=== PATIENT | female | born 1985 | race Caucasian/White ===

== ENCOUNTER 2019-01-14 16:17 | Emergency (ER) | payer OTHER ==
[~2019-01-14] VITALS: Ht 165.1 cm; Wt 93.0 kg
[2019-01-14 16:20] VITALS: BP 111/77
[2019-01-14] MEDS ORDERED: METH4TAB3 PO (16:37)
[2019-01-14] MEDS ORDERED: IBUP-1984 PO (16:37)
[2019-01-14] MEDS ORDERED: FLUT16SP2 BOTHNARES (16:37)
== END 2019-01-14 17:05 | disposition home or self-care (01) ==
LOC: ER 16:17
DX: J06.9 Acute upper respiratory infection, unspecified (principal); J32.9 Chronic sinusitis, unspecified; B97.89 Other viral agents as the cause of diseases classified elsewhere; F11.90 Opioid use, unspecified, uncomplicated; Z98.890 Other specified postprocedural states; Z79.899 Other long term (current) drug therapy; Z88.8 Allergy status to other drugs, medicaments and biological substances
CPT/HCPCS: 99283

== ENCOUNTER 2019-09-13 14:12 | Emergency (ER) | payer MEDICAID ==
[~2019-09-13] VITALS: Ht 165.1 cm; Wt 81.0 kg
[~2019-09-13 14:12] MED LIST: FLUT16SP2 BOTHNARES; METH4TAB3 PO
[2019-09-13 14:35] LABS: URINE HCG NEGATIVE (NEG)
[2019-09-13 14:36] LABS: CLARITY,URINE SLIGHTLY CLOUDY (Clear); COLOR,URINE YELLOW (Yellow); GLUCOSE, URINE NEGATIVE (Neg); KETONES,URINE 15 mg/dl (Neg); LEUKOCYTE ESTERASE ,URINE NEGATIVE (Neg); NITRITES, URINE NEGATIVE (Neg); OCCULT BLOOD,URINE MODERATE (Neg); PH,URINE 8.5 (4.8-8.0); PROTEIN,URINE 30 mg/dl (Neg)
[2019-09-13 14:39] LABS: UA COLLECTION TYPE CLN CATCH MIDSTREAM
[2019-09-13 14:41] LABS: BACTERIA,URINE 1+ /HPF (Neg); MUCUS STRANDS MANY /LPF (Neg); SQUAMOUS EPITHELIAL CELL,UR MANY /LPF (FEW); WBC,URINE 0-4 /HPF (0-4)
[2019-09-13 15:12] LABS: BASOPHILS % (AUTO) 0.2 % (0-1); EOSINOPHILS % (AUTO) 0 % (0-6); HEMATOCRIT 42.2 % (35.0-45.0); HEMOGLOBIN 13.8 g/dl (12.0-16.0); LYMPHOCYTES # (AUTO) 0.7 X10'3 (1.1-4.8); LYMPHOCYTES % (AUTO) 4.9 % (21-51); MEAN CORPUSCULAR HEMOGLOBIN 29.7 PG (27.0-31.0); MEAN CORPUSCULAR HGB CONC 32.7 g/dL (33.0-36.5); MEAN CORPUSCULAR VOLUME 90.7 FL (78-98); MEAN PLATELET VOLUME 9.1 FL (7.4-10.4); MONOCYTES # (AUTO) 0.4 X10'3 (0-0.9); MONOCYTES % (AUTO) 2.5 % (2-12); NEUTROPHILS # (AUTO) 13.8 X10'3 (1.8-7.7); NEUTROPHILS % (AUTO) 92.4 % (42-75); PLATELET COUNT 258 X10'3 (140-440); RED BLOOD COUNT 4.65 X10'6 (4.20-5.60); WHITE BLOOD COUNT 14.9 X10'3 (4.5-11.0)
[2019-09-13 15:29] LABS: ALANINE AMINOTRANSFERASE 24 U/L (12-78); ALBUMIN 4.5 G/DL (3.4-5.0); ALBUMIN/GLOBULIN RATIO 1.3 (1.1-1.5); ALKALINE PHOSPHATASE 72 IU/L (46-116); ANION GAP 12 (8-16); ASPARTATE AMINO TRANSFERASE 15 U/L (10-37); BILIRUBIN,TOTAL 0.3 MG/DL (0.1-1.0); BLOOD UREA NITROGEN 13 MG/DL (7-18); BUN/CREATININE RATIO 13.3 (6.6-38.0); CALCIUM 9.3 MG/DL (8.5-10.1); CHLORIDE 105 MMOL/L (99-107); CREATININE 0.98 MG/DL (0.40-0.90); GLUCOSE 178 MG/DL (70-104); LIPASE 61 U/L (73-393); SODIUM 141 MMOL/L (135-145); TOTAL CARBON DIOXIDE 23.6 MMOL/L (24-32); TOTAL PROTEIN 7.9 G/DL (6.4-8.2); eGFR 65 ML/MIN
[2019-09-13] MEDS ORDERED: normal saline 1000ML IV soln IVB ONE (15:35)
[2019-09-13] MEDS ORDERED: morphine 4 MG/ML inj SYRINge IV ONE (15:35)
[2019-09-13] MEDS ORDERED: ondansetron/PF 4mg/2ml inj IV ONE (15:35)
--- NOTE | 2019-09-13 15:40 | NUR ---
PT TO CT.
[2019-09-13] MEDS ORDERED: ONDA4TAB6 PO (16:47)
[2019-09-13 16:48] VITALS: BP 92/55
== END 2019-09-13 17:26 | disposition home or self-care (01) ==
LOC: ER 14:12
DX: R11.0 Nausea (principal); R10.30 Lower abdominal pain, unspecified; F11.90 Opioid use, unspecified, uncomplicated; Z88.8 Allergy status to other drugs, medicaments and biological substances; Z79.899 Other long term (current) drug therapy
CPT/HCPCS: 36415; 74176; 80053; 81001; 81025; 83690; 85025; 96374; 96375; 99284; J2270; J2405; J7030

== ENCOUNTER 2019-09-14 06:52 | Emergency (ER) | payer MEDICAID ==
[~2019-09-14] VITALS: Ht 165.1 cm; Wt 82.1 kg
[~2019-09-14 06:52] MED LIST changes: +ONDA4TAB6 PO
[2019-09-14] MEDS ORDERED: diphenhydrAMINE 25mg capsule PO ONE (07:40)
[2019-09-14] MEDS ORDERED: haloperidol lactate 5mg/ml inj IM ONE (07:40)
[2019-09-14] MEDS ORDERED: ondansetron/PF 4mg/2ml inj IV ONE (07:40)
[2019-09-14] MEDS ORDERED: normal saline 1000ML IV soln IVB ONE (07:40)
[2019-09-14 08:23] LABS: BASOPHILS # (AUTO) 0.1 X10'3 (0-0.2); BASOPHILS % (AUTO) 0.4 % (0-1); EOSINOPHILS # (AUTO) 0.1 X10'3 (0-0.9); EOSINOPHILS % (AUTO) 0.5 % (0-6); HEMATOCRIT 40.8 % (35.0-45.0); HEMOGLOBIN 13.5 g/dl (12.0-16.0); LYMPHOCYTES # (AUTO) 2.1 X10'3 (1.1-4.8); LYMPHOCYTES % (AUTO) 12.6 % (21-51); MEAN CORPUSCULAR HEMOGLOBIN 29.8 PG (27.0-31.0); MEAN CORPUSCULAR HGB CONC 33.2 g/dL (33.0-36.5); MEAN CORPUSCULAR VOLUME 89.7 FL (78-98); MEAN PLATELET VOLUME 9.1 FL (7.4-10.4); MONOCYTES # (AUTO) 1.3 X10'3 (0-0.9); NEUTROPHILS # (AUTO) 12.9 X10'3 (1.8-7.7); NEUTROPHILS % (AUTO) 78.5 % (42-75); PLATELET COUNT 239 X10'3 (140-440); RED BLOOD COUNT 4.55 X10'6 (4.20-5.60); RED CELL DISTRIBUTION WIDTH 14.3 % (11.5-14.5); WHITE BLOOD COUNT 16.4 X10'3 (4.5-11.0)
[2019-09-14] MEDS ORDERED: metoclopramide 5 mg/ml inj IV ONE (08:25)
[2019-09-14] MEDS ORDERED: diphenhydrAMINE 50 mg/ml inj IV ONE (08:25)
[2019-09-14 08:36] LABS: ALANINE AMINOTRANSFERASE 17 U/L (12-78); ALBUMIN/GLOBULIN RATIO 1.3 (1.1-1.5); ALKALINE PHOSPHATASE 64 IU/L (46-116); ANION GAP 16 (8-16); ASPARTATE AMINO TRANSFERASE 16 U/L (10-37); BILIRUBIN,TOTAL 0.3 MG/DL (0.1-1.0); BLOOD UREA NITROGEN 11 MG/DL (7-18); BUN/CREATININE RATIO 13.1 (6.6-38.0); CALCIUM 8.8 MG/DL (8.5-10.1); CHLORIDE 107 MMOL/L (99-107); CREATININE 0.84 MG/DL (0.40-0.90); GLUCOSE 121 MG/DL (70-104); LIPASE 84 U/L (73-393); POTASSIUM 3.2 MMOL/L (3.5-5.1); SODIUM 144 MMOL/L (135-145); TOTAL PROTEIN 7.2 G/DL (6.4-8.2); eGFR 77 ML/MIN
[2019-09-14 09:01] VITALS: BP 116/72
[2019-09-14] MEDS ORDERED: potassium Cl 20 mEq SR tablet PO ONE (09:20)
[2019-09-14] MEDS ORDERED: LORazepam 2 mg/ml vial IV ONE (09:20)
[2019-09-15] MEDS ORDERED: ONDA4TAB6 PO (12:39)
== END 2019-09-14 10:19 | disposition home or self-care (01) ==
LOC: ER 06:53
DX: R11.2 Nausea with vomiting, unspecified (principal); F12.188 Cannabis abuse with other cannabis-induced disorder; F11.90 Opioid use, unspecified, uncomplicated; R10.84 Generalized abdominal pain; Z88.8 Allergy status to other drugs, medicaments and biological substances; Z79.899 Other long term (current) drug therapy
CPT/HCPCS: 36415; 80053; 83690; 85025; 96361; 96372; 96374; 96375; 99284; J1200; J1630; J2060; J2405; J2765; J7030; Q0163

== ENCOUNTER 2019-09-15 10:54 | Emergency (ER) | payer MEDICAID ==
[~2019-09-15] VITALS: Ht 165.1 cm; Wt 84.1 kg
[2019-09-15] MEDS ORDERED: ondansetron/PF 4mg/2ml inj IV ONE (11:10)
[2019-09-15] MEDS ORDERED: normal saline 1000ML IV soln IV ONE (11:10)
[2019-09-15] MEDS ORDERED: haloperidol lactate 5mg/ml inj IM ONE (11:10)
[2019-09-15] MEDS ORDERED: LORazepam 2 mg/ml vial IV ONE (11:10)
[2019-09-15 11:41] LABS: BASOPHILS # (AUTO) 0.1 X10'3 (0-0.2); BASOPHILS % (AUTO) 0.5 % (0-1); EOSINOPHILS % (AUTO) 0.4 % (0-6); HEMATOCRIT 41.7 % (35.0-45.0); HEMOGLOBIN 13.8 g/dl (12.0-16.0); LYMPHOCYTES # (AUTO) 1.6 X10'3 (1.1-4.8); LYMPHOCYTES % (AUTO) 13.5 % (21-51); MEAN CORPUSCULAR HEMOGLOBIN 29.6 PG (27.0-31.0); MEAN CORPUSCULAR HGB CONC 33.1 g/dL (33.0-36.5); MEAN CORPUSCULAR VOLUME 89.3 FL (78-98); MEAN PLATELET VOLUME 9.3 FL (7.4-10.4); MONOCYTES # (AUTO) 0.8 X10'3 (0-0.9); MONOCYTES % (AUTO) 6.6 % (2-12); NEUTROPHILS # (AUTO) 9.6 X10'3 (1.8-7.7); PLATELET COUNT 244 X10'3 (140-440); RED BLOOD COUNT 4.67 X10'6 (4.20-5.60); RED CELL DISTRIBUTION WIDTH 14.2 % (11.5-14.5); WHITE BLOOD COUNT 12.2 X10'3 (4.5-11.0)
[2019-09-15 11:56] LABS: ALANINE AMINOTRANSFERASE 26 U/L (12-78); ALBUMIN 4.3 G/DL (3.4-5.0); ALBUMIN/GLOBULIN RATIO 1.3 (1.1-1.5); ALKALINE PHOSPHATASE 67 IU/L (46-116); ANION GAP 12 (8-16); ASPARTATE AMINO TRANSFERASE 18 U/L (10-37); BILIRUBIN,TOTAL 0.3 MG/DL (0.1-1.0); BLOOD UREA NITROGEN 15 MG/DL (7-18); CALCIUM 9.1 MG/DL (8.5-10.1); CHLORIDE 107 MMOL/L (99-107); CREATININE 0.79 MG/DL (0.40-0.90); GLUCOSE 134 MG/DL (70-104); POTASSIUM 3.5 MMOL/L (3.5-5.1); SODIUM 141 MMOL/L (135-145); TOTAL CARBON DIOXIDE 22.3 MMOL/L (24-32); TOTAL PROTEIN 7.6 G/DL (6.4-8.2); eGFR 83 ML/MIN
[2019-09-15] MEDS ORDERED: ONDA4TAB6 PO (12:39)
[2019-09-15] MEDS ORDERED: acetaminophen 325mg tablet PO ONE (12:45)
[2019-09-15] MEDS ORDERED: metoclopramide 5 mg/ml inj IV ONE (12:45)
[2019-09-15] MEDS ORDERED: diphenhydrAMINE 50 mg/ml inj IV ONE (13:35)
[2019-09-15 14:17] VITALS: BP 138/90
== END 2019-09-15 13:28 | disposition home or self-care (01) ==
LOC: ER 10:54
DX: R11.15 Cyclical vomiting syndrome unrelated to migraine (principal); F12.188 Cannabis abuse with other cannabis-induced disorder; R11.2 Nausea with vomiting, unspecified; R10.84 Generalized abdominal pain; F11.90 Opioid use, unspecified, uncomplicated; Z88.8 Allergy status to other drugs, medicaments and biological substances; Z79.899 Other long term (current) drug therapy
CPT/HCPCS: 36415; 80053; 85025; 96361; 96372; 96374; 96375; 99284; J1200; J1630; J2060; J2405; J2765; J7030

== ENCOUNTER 2019-09-19 01:16 | Emergency (ER) | payer MEDICAID ==
[~2019-09-19] VITALS: Ht 165.1 cm; Wt 81.0 kg
[2019-09-19] MEDS ORDERED: LORazepam 2 mg/ml vial IM ONE (02:50)
[2019-09-19] MEDS ORDERED: haloperidol lactate 5mg/ml inj IM ONE (02:50)
[2019-09-19] MEDS ORDERED: diphenhydrAMINE 50 mg/ml inj IM ONE (02:50)
[2019-09-19 04:19] VITALS: BP 132/94
== END 2019-09-19 04:21 | disposition home or self-care (01) ==
LOC: ER 01:17
DX: R11.15 Cyclical vomiting syndrome unrelated to migraine (principal); R10.9 Unspecified abdominal pain; R11.2 Nausea with vomiting, unspecified; F12.90 Cannabis use, unspecified, uncomplicated; F11.90 Opioid use, unspecified, uncomplicated; Z88.8 Allergy status to other drugs, medicaments and biological substances; Z79.899 Other long term (current) drug therapy
CPT/HCPCS: 96372; 99284; J1200; J1630; J2060

== ENCOUNTER 2019-09-21 08:00 | Emergency (ER) | payer MEDICAID ==
[~2019-09-21] VITALS: Ht 165.1 cm; Wt 79.0 kg
[2019-09-21 08:55] LABS: CLARITY,URINE SLIGHTLY CLOUDY (Clear); COLOR,URINE BROWN (Yellow); GLUCOSE, URINE NEGATIVE (Neg); KETONES,URINE NEGATIVE (Neg); LEUKOCYTE ESTERASE ,URINE TRACE (Neg); NITRITES, URINE NEGATIVE (Neg); OCCULT BLOOD,URINE TRACE-LYSED (Neg); PH,URINE 6.5 (4.8-8.0); PROTEIN,URINE NEGATIVE (Neg)
[2019-09-21 08:58] LABS: URINE HCG NEGATIVE (NEG)
[2019-09-21 08:59] LABS: UA COLLECTION TYPE CLN CATCH MIDSTREAM
[2019-09-21 09:05] LABS: SQUAMOUS EPITHELIAL CELL,UR MANY /LPF (FEW)
[2019-09-21] MEDS ORDERED: metoclopramide 5 mg/ml inj IV ONE (09:05)
[2019-09-21] MEDS ORDERED: LORazepam 2 mg/ml vial IV ONE (09:05)
[2019-09-21] MEDS ORDERED: normal saline 1000ML IV soln IVB ONE ×2 (09:05)
[2019-09-21] MEDS ORDERED: morphine 4 MG/ML inj SYRINge IV ONE (09:05)
[2019-09-21] MEDS ORDERED: pantoprazole 40 MG vial IV ONE (09:05)
[2019-09-21 09:07] LABS: CAL OXALATE CRYSTALS FEW /HPF (NEGATIVE); RBC,URINE 0-2 /HPF (0-2); WBC,URINE 0-4 /HPF (0-4)
[2019-09-21 09:08] LABS: BACTERIA,URINE FEW /HPF (Neg); MUCUS STRANDS MANY /LPF (Neg)
[2019-09-21 09:35] LABS: BASOPHILS # (AUTO) 0.1 X10'3 (0-0.2); BASOPHILS % (AUTO) 0.5 % (0-1); EOSINOPHILS # (AUTO) 0.1 X10'3 (0-0.9); EOSINOPHILS % (AUTO) 0.7 % (0-6); HEMATOCRIT 47.1 % (35.0-45.0); HEMOGLOBIN 15.8 g/dl (12.0-16.0); LYMPHOCYTES # (AUTO) 1.5 X10'3 (1.1-4.8); LYMPHOCYTES % (AUTO) 10.6 % (21-51); MEAN CORPUSCULAR HEMOGLOBIN 29.8 PG (27.0-31.0); MEAN CORPUSCULAR HGB CONC 33.6 g/dL (33.0-36.5); MEAN CORPUSCULAR VOLUME 88.7 FL (78-98); MEAN PLATELET VOLUME 9.3 FL (7.4-10.4); MONOCYTES # (AUTO) 1.2 X10'3 (0-0.9); NEUTROPHILS # (AUTO) 11.7 X10'3 (1.8-7.7); NEUTROPHILS % (AUTO) 80.2 % (42-75); PLATELET COUNT 266 X10'3 (140-440); RED BLOOD COUNT 5.31 X10'6 (4.20-5.60); RED CELL DISTRIBUTION WIDTH 13.8 % (11.5-14.5); WHITE BLOOD COUNT 14.6 X10'3 (4.5-11.0)
[2019-09-21 09:46] LABS: ALANINE AMINOTRANSFERASE 19 U/L (12-78); ALBUMIN 4.3 G/DL (3.4-5.0); ALBUMIN/GLOBULIN RATIO 1.3 (1.1-1.5); ALKALINE PHOSPHATASE 69 IU/L (46-116); ASPARTATE AMINO TRANSFERASE 13 U/L (10-37); BILIRUBIN,TOTAL 0.5 MG/DL (0.1-1.0); BLOOD UREA NITROGEN 11 MG/DL (7-18); BUN/CREATININE RATIO 11.6 (6.6-38.0); CALCIUM 9.2 MG/DL (8.5-10.1); CHLORIDE 105 MMOL/L (99-107); CREATININE 0.95 MG/DL (0.40-0.90); GLUCOSE 113 MG/DL (70-104); LIPASE 140 U/L (73-393); POTASSIUM 3.3 MMOL/L (3.5-5.1); TOTAL PROTEIN 7.7 G/DL (6.4-8.2); eGFR 67 ML/MIN
[2019-09-21 09:49] LABS: ANION GAP 10 (8-16); SODIUM 141 MMOL/L (135-145)
[2019-09-21] MEDS ORDERED: ondansetron/PF 4mg/2ml inj IV ONE (10:30)
[2019-09-21] MEDS ORDERED: HYDR-3965 PO (12:10)
[2019-09-21] MEDS ORDERED: ONDA8TAB13 PO (12:10)
[2019-09-21] MEDS ORDERED: PANT-47 PO (12:10)
[2019-09-21 12:40] VITALS: BP 135/88
== END 2019-09-21 12:40 | disposition home or self-care (01) ==
LOC: ER 08:01
DX: R10.9 Unspecified abdominal pain (principal); R11.2 Nausea with vomiting, unspecified; N73.9 Female pelvic inflammatory disease, unspecified; F12.90 Cannabis use, unspecified, uncomplicated; F11.90 Opioid use, unspecified, uncomplicated; Z88.8 Allergy status to other drugs, medicaments and biological substances; Z79.899 Other long term (current) drug therapy
CPT/HCPCS: 36415; 80053; 81001; 81025; 83690; 85025; 96361; 96374; 96375; 99284; C9113; J2060; J2270; J2405; J2765; J7030

== ENCOUNTER 2019-09-22 09:36 | Emergency (ER) | payer MEDICAID ==
[~2019-09-22] VITALS: Ht 165.1 cm; Wt 80.0 kg
[~2019-09-22 09:36] MED LIST changes: +HYDR-3965 PO; +ONDA8TAB13 PO; +PANT-47 PO
[2019-09-22] MEDS ORDERED: normal saline 1000ML IV soln IVB ONE ×2 (09:50→12:35)
[2019-09-22] MEDS ORDERED: ondansetron/PF 4mg/2ml inj IV ONE (09:50)
[2019-09-22] MEDS ORDERED: pantoprazole 40 MG vial IV ONE (10:00)
[2019-09-22] MEDS ORDERED: morphine 10mg/ml inj. IV ONE ×2 (10:00→12:45)
[2019-09-22] MEDS ORDERED: metoclopramide 5 mg/ml inj IV ONE (10:00)
[2019-09-22] MEDS ORDERED: diphenhydrAMINE 50 mg/ml inj IV ONE (10:00)
[2019-09-22 10:34] LABS: BASOPHILS % (AUTO) 0.6 % (0-1); EOSINOPHILS # (AUTO) 0.1 X10'3 (0-0.9); EOSINOPHILS % (AUTO) 1.1 % (0-6); HEMATOCRIT 45.6 % (35.0-45.0); HEMOGLOBIN 15.1 g/dl (12.0-16.0); LYMPHOCYTES % (AUTO) 24.3 % (21-51); MEAN CORPUSCULAR HEMOGLOBIN 29.7 PG (27.0-31.0); MEAN CORPUSCULAR HGB CONC 33.2 g/dL (33.0-36.5); MEAN CORPUSCULAR VOLUME 89.5 FL (78-98); MEAN PLATELET VOLUME 9.6 FL (7.4-10.4); MONOCYTES # (AUTO) 0.8 X10'3 (0-0.9); MONOCYTES % (AUTO) 10.2 % (2-12); NEUTROPHILS # (AUTO) 5.3 X10'3 (1.8-7.7); NEUTROPHILS % (AUTO) 63.8 % (42-75); PLATELET COUNT 255 X10'3 (140-440); RED BLOOD COUNT 5.09 X10'6 (4.20-5.60); RED CELL DISTRIBUTION WIDTH 14.3 % (11.5-14.5); WHITE BLOOD COUNT 8.3 X10'3 (4.5-11.0)
[2019-09-22 11:02] LABS: ALANINE AMINOTRANSFERASE 17 U/L (12-78); ALBUMIN 4.3 G/DL (3.4-5.0); ALBUMIN/GLOBULIN RATIO 1.4 (1.1-1.5); ALKALINE PHOSPHATASE 65 IU/L (46-116); AMYLASE 44 U/L (25-115); ANION GAP 13 (8-16); ASPARTATE AMINO TRANSFERASE 12 U/L (10-37); BILIRUBIN,TOTAL 0.5 MG/DL (0.1-1.0); BLOOD UREA NITROGEN 9 MG/DL (7-18); BUN/CREATININE RATIO 10.8 (6.6-38.0); CALCIUM 9.1 MG/DL (8.5-10.1); CHLORIDE 103 MMOL/L (99-107); CREATININE 0.83 MG/DL (0.40-0.90); GLUCOSE 118 MG/DL (70-104); LIPASE 475 U/L (73-393); POTASSIUM 3.3 MMOL/L (3.5-5.1); SODIUM 141 MMOL/L (135-145); TOTAL PROTEIN 7.4 G/DL (6.4-8.2); eGFR 78 ML/MIN
[2019-09-22 11:37] LABS: CLARITY,URINE TURBID (Clear); COLOR,URINE STRAW (Yellow); GLUCOSE, URINE NEGATIVE (Neg); KETONES,URINE NEGATIVE (Neg); LEUKOCYTE ESTERASE ,URINE NEGATIVE (Neg); NITRITES, URINE NEGATIVE (Neg); OCCULT BLOOD,URINE MODERATE (Neg); PROTEIN,URINE NEGATIVE (Neg); UA COLLECTION TYPE CLN CATCH MIDSTREAM; UROBILINOGEN,URINE 0.2 E.U/dL (0.2-1.0)
[2019-09-22 11:38] LABS: URINE HCG NEGATIVE (NEG)
[2019-09-22 11:43] LABS: URINE AMPHETAMINE SCREEN NEGATIVE (Neg); URINE BARBITUATE SCREEN NEGATIVE (Neg); URINE BENZODIAZEPINES SCREEN NEGATIVE (Neg); URINE CANNABINOID SCREEN POSITIVE (Neg); URINE COCAINE SCREEN NEGATIVE (Neg); URINE METHADONE SCREEN NEGATIVE (Neg); URINE OPIATE SCREEN POSITIVE (Neg); URINE PHENCYCLIDINE SCREEN NEGATIVE (Neg)
[2019-09-22 11:52] LABS: SQUAMOUS EPITHELIAL CELL,UR MANY /LPF (FEW)
[2019-09-22 11:53] LABS: BACTERIA,URINE NONE SEEN /HPF (Neg); RBC,URINE 0-2 /HPF (0-2); WBC,URINE 0-4 /HPF (0-4)
[2019-09-22 11:55] LABS: AMORPHOUS PHOSPHATES 4+; MUCUS STRANDS MANY /LPF (Neg)
[2019-09-22] MEDS ORDERED: LORazepam 2 mg/ml vial IV ONE (12:35)
[2019-09-22] MEDS ORDERED: haloperidol lactate 5mg/ml inj IM ONE (12:35)
[2019-09-22 13:28] VITALS: BP 143/94
[2019-09-23] MEDS ORDERED: PROM25SU46 RC (07:55)
== END 2019-09-22 14:07 | disposition home or self-care (01) ==
LOC: ER 09:36
DX: R11.10 Vomiting, unspecified (principal); F12.90 Cannabis use, unspecified, uncomplicated; F11.90 Opioid use, unspecified, uncomplicated; Z98.890 Other specified postprocedural states; Z88.8 Allergy status to other drugs, medicaments and biological substances; Z79.899 Other long term (current) drug therapy
CPT/HCPCS: 36415; 80053; 80305; 81001; 81025; 82150; 83690; 85025; 96361; 96372; 96374; 96375; 96376; 99284; C9113; J1200; J1630; J2060; J2270; J2405; J2765; J7030

== ENCOUNTER 2019-09-23 06:28 | Emergency (ER) | payer MEDICAID ==
[~2019-09-23] VITALS: Ht 165.1 cm; Wt 79.5 kg
[2019-09-23] MEDS ORDERED: diphenhydrAMINE 50 mg/ml inj IV ONE (06:40)
[2019-09-23] MEDS ORDERED: normal saline 1000ML IV soln IVB ONE (06:40)
[2019-09-23] MEDS ORDERED: haloperidol lactate 5mg/ml inj IM ONE (06:40)
[2019-09-23] MEDS ORDERED: ondansetron/PF 4mg/2ml inj IV ONE (06:40)
[2019-09-23] MEDS ORDERED: ketorolac tromethamine 15mg/ml inj. IV ONE (07:10)
[2019-09-23 07:11] LABS: BASOPHILS # (AUTO) 0.1 X10'3 (0-0.2); BASOPHILS % (AUTO) 0.8 % (0-1); EOSINOPHILS # (AUTO) 0.1 X10'3 (0-0.9); EOSINOPHILS % (AUTO) 1.1 % (0-6); HEMATOCRIT 42.2 % (35.0-45.0); HEMOGLOBIN 14.1 g/dl (12.0-16.0); LYMPHOCYTES # (AUTO) 1.8 X10'3 (1.1-4.8); LYMPHOCYTES % (AUTO) 18.7 % (21-51); MEAN CORPUSCULAR HGB CONC 33.5 g/dL (33.0-36.5); MEAN CORPUSCULAR VOLUME 89.7 FL (78-98); MEAN PLATELET VOLUME 9.1 FL (7.4-10.4); MONOCYTES # (AUTO) 0.9 X10'3 (0-0.9); MONOCYTES % (AUTO) 9.2 % (2-12); NEUTROPHILS # (AUTO) 6.7 X10'3 (1.8-7.7); NEUTROPHILS % (AUTO) 70.2 % (42-75); PLATELET COUNT 222 X10'3 (140-440); RED BLOOD COUNT 4.71 X10'6 (4.20-5.60); RED CELL DISTRIBUTION WIDTH 14.1 % (11.5-14.5); WHITE BLOOD COUNT 9.6 X10'3 (4.5-11.0)
[2019-09-23 07:26] LABS: ALANINE AMINOTRANSFERASE 19 U/L (12-78); ALBUMIN 3.9 G/DL (3.4-5.0); ALBUMIN/GLOBULIN RATIO 1.4 (1.1-1.5); ALKALINE PHOSPHATASE 58 IU/L (46-116); ANION GAP 10 (8-16); ASPARTATE AMINO TRANSFERASE 18 U/L (10-37); BILIRUBIN,TOTAL 0.2 MG/DL (0.1-1.0); BLOOD UREA NITROGEN 7 MG/DL (7-18); BUN/CREATININE RATIO 8.1 (6.6-38.0); CALCIUM 8.6 MG/DL (8.5-10.1); CHLORIDE 105 MMOL/L (99-107); CREATININE 0.86 MG/DL (0.40-0.90); GLUCOSE 111 MG/DL (70-104); LIPASE 134 U/L (73-393); POTASSIUM 3.2 MMOL/L (3.5-5.1); SODIUM 140 MMOL/L (135-145); TOTAL PROTEIN 6.7 G/DL (6.4-8.2); eGFR 75 ML/MIN
--- NOTE | 2019-09-23 07:30 | NUR ---
Patient ambulated safely to and from bathroom, gait steady, balanced, no signs of distress noted.
[2019-09-23] MEDS ORDERED: PROM25SU46 RC (07:55)
[2019-09-23 08:04] VITALS: BP 137/96
== END 2019-09-23 08:04 | disposition home or self-care (01) ==
LOC: ER 06:29
DX: R11.15 Cyclical vomiting syndrome unrelated to migraine (principal); R11.2 Nausea with vomiting, unspecified; R10.9 Unspecified abdominal pain; F12.90 Cannabis use, unspecified, uncomplicated; F11.90 Opioid use, unspecified, uncomplicated; Z88.8 Allergy status to other drugs, medicaments and biological substances; Z79.899 Other long term (current) drug therapy
CPT/HCPCS: 36415; 80053; 83690; 85025; 96361; 96372; 96374; 96375; 99284; J1200; J1630; J1885; J2405; J7030

== ENCOUNTER 2019-10-29 05:43 | Emergency (ER) | payer MEDICAID ==
[~2019-10-29] VITALS: Ht 165.1 cm; Wt 77.3 kg
[~2019-10-29 05:43] MED LIST changes: -HYDR-3965 PO; +PROM25SU46 RC
[2019-10-29] MEDS ORDERED: ondansetron/PF 4mg/2ml inj IV STA (05:49)
[2019-10-29] MEDS ORDERED: normal saline 1000ml 1,000 ML IVB ONE (05:49)
[2019-10-29] MEDS ORDERED: metoclopramide 5 mg/ml inj IV ONE (06:05)
[2019-10-29] MEDS ORDERED: haloperidol lactate 5mg/ml inj IM ONE (06:05)
[2019-10-29 06:12] LABS: BASOPHILS # (AUTO) 0.1 X10'3 (0-0.2); BASOPHILS % (AUTO) 0.4 % (0-1); EOSINOPHILS # (AUTO) 0.2 X10'3 (0-0.9); EOSINOPHILS % (AUTO) 1.1 % (0-6); HEMATOCRIT 41.8 % (35.0-45.0); HEMOGLOBIN 14.1 g/dl (12.0-16.0); LYMPHOCYTES # (AUTO) 2.5 X10'3 (1.1-4.8); MEAN CORPUSCULAR HEMOGLOBIN 30.2 PG (27.0-31.0); MEAN CORPUSCULAR HGB CONC 33.8 g/dL (33.0-36.5); MEAN CORPUSCULAR VOLUME 89.5 FL (78-98); MEAN PLATELET VOLUME 9.4 FL (7.4-10.4); MONOCYTES % (AUTO) 5.8 % (2-12); NEUTROPHILS # (AUTO) 12.9 X10'3 (1.8-7.7); NEUTROPHILS % (AUTO) 77.7 % (42-75); PLATELET COUNT 229 X10'3 (140-440); RED BLOOD COUNT 4.67 X10'6 (4.20-5.60); RED CELL DISTRIBUTION WIDTH 14.1 % (11.5-14.5); WHITE BLOOD COUNT 16.6 X10'3 (4.5-11.0)
[2019-10-29 06:24] LABS: ALANINE AMINOTRANSFERASE 17 U/L (12-78); ALBUMIN 4.4 G/DL (3.4-5.0); ALBUMIN/GLOBULIN RATIO 1.4 (1.1-1.5); ALKALINE PHOSPHATASE 62 IU/L (46-116); ANION GAP 15 (8-16); ASPARTATE AMINO TRANSFERASE 15 U/L (10-37); BILIRUBIN,TOTAL 0.3 MG/DL (0.1-1.0); BLOOD UREA NITROGEN 14 MG/DL (7-18); CALCIUM 9.3 MG/DL (8.5-10.1); CHLORIDE 105 MMOL/L (99-107); GLUCOSE 164 MG/DL (70-104); LIPASE 150 U/L (73-393); POTASSIUM 3.5 MMOL/L (3.5-5.1); SODIUM 139 MMOL/L (135-145); TOTAL CARBON DIOXIDE 18.6 MMOL/L (24-32); TOTAL PROTEIN 7.6 G/DL (6.4-8.2); eGFR > 90 ML/MIN
[2019-10-29] MEDS ORDERED: ketorolac tromethamine 15mg/ml inj. IV ONE (06:30)
[2019-10-29] MEDS ORDERED: famotidine/PF 10 mg/ml inj IV ONE (06:30)
[2019-10-29] MEDS ORDERED: pantoprazole 40 MG vial IV ONE (06:30)
[2019-10-29] MEDS ORDERED: ringers solution, lactated 1000ml IV soln IV ONE (06:55)
[2019-10-29] MEDS ORDERED: PROC25SU31 RC (07:07)
[2019-10-29] MEDS ORDERED: PROC-8 PO (07:07)
--- NOTE | 2019-10-29 07:28 | NUR ---
PT ASKING TO GO HOME, DC PAPERWORK IS READY. BRING IN FOR PT TO SIGN BUT SHE STATES "I CAN READ YOU DONT NEED GIVE ME DC INSTRUCTIONS. I JUST WANT TO GO." DC IV INTACT AND SITE CLEAR. PT LEAVES IN A HURRY AND NO DC VITALS ARE COMPLETED.
== END 2019-10-29 07:32 | disposition home or self-care (01) ==
LOC: ER 05:43
DX: R11.15 Cyclical vomiting syndrome unrelated to migraine (principal); R10.13 Epigastric pain; F12.90 Cannabis use, unspecified, uncomplicated; F11.90 Opioid use, unspecified, uncomplicated; R11.2 Nausea with vomiting, unspecified; Z88.8 Allergy status to other drugs, medicaments and biological substances; Z79.899 Other long term (current) drug therapy
CPT/HCPCS: 36415; 80053; 83690; 85025; 96372; 96374; 96375; 99284; C9113; J1630; J1885; J2405; J2765; J3490; J7030; J7120

== ENCOUNTER 2019-11-01 19:01 | Emergency (ER) | payer MEDICAID ==
[~2019-11-01] VITALS: Ht 165.1 cm; Wt 77.7 kg
[~2019-11-01 19:01] MED LIST changes: +PROC-8 PO; +PROC25SU31 RC
[2019-11-01 19:38] LABS: URINE HCG NEGATIVE (NEG)
[2019-11-01 19:47] LABS: CLARITY,URINE SLIGHTLY CLOUDY (Clear); COLOR,URINE YELLOW (Yellow); GLUCOSE, URINE NEGATIVE (Neg); KETONES,URINE >=80 mg/dl (Neg); LEUKOCYTE ESTERASE ,URINE NEGATIVE (Neg); NITRITES, URINE NEGATIVE (Neg); OCCULT BLOOD,URINE LARGE (Neg); PROTEIN,URINE 30 mg/dl (Neg)
[2019-11-01 19:48] LABS: BASOPHILS % (AUTO) 0.3 % (0-1); EOSINOPHILS % (AUTO) 0 % (0-6); HEMATOCRIT 42.1 % (35.0-45.0); HEMOGLOBIN 14.2 g/dl (12.0-16.0); LYMPHOCYTES # (AUTO) 1.1 X10'3 (1.1-4.8); LYMPHOCYTES % (AUTO) 9.4 % (21-51); MEAN CORPUSCULAR HEMOGLOBIN 30.1 PG (27.0-31.0); MEAN CORPUSCULAR HGB CONC 33.7 g/dL (33.0-36.5); MEAN CORPUSCULAR VOLUME 89.4 FL (78-98); MEAN PLATELET VOLUME 9.4 FL (7.4-10.4); MONOCYTES # (AUTO) 0.8 X10'3 (0-0.9); MONOCYTES % (AUTO) 7.1 % (2-12); NEUTROPHILS # (AUTO) 9.4 X10'3 (1.8-7.7); NEUTROPHILS % (AUTO) 83.2 % (42-75); PLATELET COUNT 235 X10'3 (140-440); RED BLOOD COUNT 4.71 X10'6 (4.20-5.60); RED CELL DISTRIBUTION WIDTH 13.9 % (11.5-14.5); WHITE BLOOD COUNT 11.3 X10'3 (4.5-11.0)
[2019-11-01] MEDS ORDERED: normal saline 1000ml 1,000 ML IV ONE (19:50)
[2019-11-01] MEDS ORDERED: diphenhydrAMINE 50 mg/ml inj IV ONE (19:50)
[2019-11-01] MEDS ORDERED: haloperidol lactate 5mg/ml inj IM ONE (19:50)
[2019-11-01 19:53] LABS: ALANINE AMINOTRANSFERASE 23 U/L (12-78); ALBUMIN 4.6 G/DL (3.4-5.0); ALBUMIN/GLOBULIN RATIO 1.3 (1.1-1.5); ALKALINE PHOSPHATASE 60 IU/L (46-116); ANION GAP 14 (8-16); ASPARTATE AMINO TRANSFERASE 16 U/L (10-37); BILIRUBIN,TOTAL 0.5 MG/DL (0.1-1.0); BLOOD UREA NITROGEN 15 MG/DL (7-18); BUN/CREATININE RATIO 17.2 (6.6-38.0); CALCIUM 9.8 MG/DL (8.5-10.1); CHLORIDE 102 MMOL/L (99-107); CREATININE 0.87 MG/DL (0.40-0.90); GLUCOSE 138 MG/DL (70-104); LIPASE 196 U/L (73-393); POTASSIUM 3.4 MMOL/L (3.5-5.1); SODIUM 138 MMOL/L (135-145); TOTAL PROTEIN 8.1 G/DL (6.4-8.2); eGFR 74 ML/MIN
[2019-11-01 19:56] LABS: UA COLLECTION TYPE CLN CATCH MIDSTREAM
[2019-11-01 19:58] LABS: BACTERIA,URINE FEW /HPF (Neg); MUCUS STRANDS MANY /LPF (Neg); RBC,URINE 0-2 /HPF (0-2); SQUAMOUS EPITHELIAL CELL,UR FEW /LPF (FEW); WBC,URINE 0-4 /HPF (0-4)
[2019-11-01 21:21] VITALS: BP 91/77
== END 2019-11-01 21:22 | disposition home or self-care (01) ==
LOC: ER 19:02
DX: R11.2 Nausea with vomiting, unspecified (principal); R10.84 Generalized abdominal pain; M54.5 Low back pain; F31.9 Bipolar disorder, unspecified; F20.9 Schizophrenia, unspecified; F12.90 Cannabis use, unspecified, uncomplicated; F11.90 Opioid use, unspecified, uncomplicated; Z98.890 Other specified postprocedural states; Z88.8 Allergy status to other drugs, medicaments and biological substances; Z79.899 Other long term (current) drug therapy
CPT/HCPCS: 36415; 80053; 81001; 81025; 83690; 85025; 96361; 96372; 96374; 99284; J1200; J1630; J7030

== ENCOUNTER 2019-12-03 16:58 | Emergency (ER) | payer MEDICAID ==
[~2019-12-03] VITALS: Ht 162.6 cm; Wt 77.0 kg
[~2019-12-03 16:58] MED LIST changes: -PROC25SU31 RC
[2019-12-03] MEDS ORDERED: LORazepam 1 MG tablet PO ONE (17:25)
[2019-12-03] MEDS ORDERED: HYDR-3686 PO (18:19)
[2019-12-03] MEDS ORDERED: ALPR1TAB2 PO (18:54)
[2019-12-03 19:08] VITALS: BP 118/78
== END 2019-12-03 19:10 | disposition home or self-care (01) ==
LOC: ER 16:59
DX: F41.9 Anxiety disorder, unspecified (principal); R45.0 Nervousness; R06.02 Shortness of breath; R11.2 Nausea with vomiting, unspecified; F31.9 Bipolar disorder, unspecified; F20.9 Schizophrenia, unspecified; F12.90 Cannabis use, unspecified, uncomplicated; F11.90 Opioid use, unspecified, uncomplicated; Z98.890 Other specified postprocedural states; Z88.8 Allergy status to other drugs, medicaments and biological substances; Z79.899 Other long term (current) drug therapy
CPT/HCPCS: 93005; 99283

== ENCOUNTER 2019-12-22 11:05 | Emergency (ER) | payer MEDICAID ==
[~2019-12-22] VITALS: Ht 165.1 cm; Wt 77.7 kg
[~2019-12-22 11:05] MED LIST changes: +ALPR1TAB2 PO
[2019-12-22] MEDS ORDERED: normal saline 1000ML IV soln IV ONE (11:50)
[2019-12-22] MEDS ORDERED: LORazepam 2 mg/ml vial IV ONE ×2 (11:50→12:55)
[2019-12-22] MEDS ORDERED: haloperidol lactate 5mg/ml inj IM ONE (11:50)
[2019-12-22] MEDS ORDERED: famotidine/PF 10 mg/ml inj IV ONE (12:55)
[2019-12-22] MEDS ORDERED: metoclopramide 5 mg/ml inj IV ONE (12:55)
[2019-12-22 13:28] VITALS: BP 121/74
[2019-12-22 13:28] LABS: URINE HCG NEGATIVE (NEG)
[2019-12-23] MEDS ORDERED: PRAZ5CAP PO (22:07)
[2019-12-23] MEDS ORDERED: THO10T PO (22:22)
[2019-12-23] MEDS ORDERED: METO-292 PO (22:22)
[2019-12-23] MEDS ORDERED: BUS15T PO (22:22)
[2019-12-23] MEDS ORDERED: SERT-153 PO (22:22)
== END 2019-12-22 14:38 | disposition home or self-care (01) ==
LOC: ER 11:06
DX: R11.15 Cyclical vomiting syndrome unrelated to migraine (principal); F12.188 Cannabis abuse with other cannabis-induced disorder; R11.10 Vomiting, unspecified; F31.9 Bipolar disorder, unspecified; F20.9 Schizophrenia, unspecified; Z98.890 Other specified postprocedural states; Z88.8 Allergy status to other drugs, medicaments and biological substances; Z79.899 Other long term (current) drug therapy
CPT/HCPCS: 81025; 93005; 96361; 96372; 96374; 96375; 96376; 99284; J1630; J2060; J2765; J3490; J7030

== ENCOUNTER 2019-12-23 20:41 | Emergency (ER) | payer MEDICAID ==
[~2019-12-23] VITALS: Ht 165.1 cm; Wt 73.5 kg
[~2019-12-23 20:41] MED LIST changes: -PROM25SU46 RC; +PROM25SU9 RC
[2019-12-23 21:26] LABS: BASOPHILS # (AUTO) 0.1 X10'3 (0-0.2); BASOPHILS % (AUTO) 0.5 % (0-1); EOSINOPHILS % (AUTO) 0.1 % (0-6); HEMATOCRIT 41.9 % (35.0-45.0); HEMOGLOBIN 14.3 g/dl (12.0-16.0); LYMPHOCYTES # (AUTO) 1.7 X10'3 (1.1-4.8); LYMPHOCYTES % (AUTO) 7.3 % (21-51); MEAN CORPUSCULAR HEMOGLOBIN 30.1 PG (27.0-31.0); MEAN CORPUSCULAR VOLUME 88.5 FL (78-98); MEAN PLATELET VOLUME 8.9 FL (7.4-10.4); MONOCYTES # (AUTO) 1.7 X10'3 (0-0.9); MONOCYTES % (AUTO) 7.7 % (2-12); NEUTROPHILS # (AUTO) 19.1 X10'3 (1.8-7.7); NEUTROPHILS % (AUTO) 84.4 % (42-75); PLATELET COUNT 270 X10'3 (140-440); RED BLOOD COUNT 4.74 X10'6 (4.20-5.60); RED CELL DISTRIBUTION WIDTH 13.4 % (11.5-14.5); WHITE BLOOD COUNT 22.6 X10'3 (4.5-11.0)
[2019-12-23 21:28] LABS: URINE HCG NEGATIVE (NEG)
[2019-12-23 21:30] LABS: CLARITY,URINE CLEAR (Clear); COLOR,URINE YELLOW (Yellow); GLUCOSE, URINE NEGATIVE (Neg); KETONES,URINE 40 mg/dl (Neg); LEUKOCYTE ESTERASE ,URINE TRACE (Neg); NITRITES, URINE NEGATIVE (Neg); OCCULT BLOOD,URINE NEGATIVE (Neg); PH,URINE 6.5 (4.8-8.0); PROTEIN,URINE TRACE mg/dl (Neg)
[2019-12-23 21:39] LABS: ALANINE AMINOTRANSFERASE 27 U/L (12-78); ALBUMIN 4.6 G/DL (3.4-5.0); ALBUMIN/GLOBULIN RATIO 1.4 (1.1-1.5); ALKALINE PHOSPHATASE 79 IU/L (46-116); ANION GAP 16 (8-16); ASPARTATE AMINO TRANSFERASE 25 U/L (10-37); BILIRUBIN,TOTAL 0.6 MG/DL (0.1-1.0); BLOOD UREA NITROGEN 13 MG/DL (7-18); BUN/CREATININE RATIO 16.9 (6.6-38.0); CALCIUM 9.2 MG/DL (8.5-10.1); CHLORIDE 98 MMOL/L (99-107); CREATININE 0.77 MG/DL (0.40-0.90); GLUCOSE 126 MG/DL (70-104); LIPASE 92 U/L (73-393); SODIUM 135 MMOL/L (135-145); TOTAL CARBON DIOXIDE 21.5 MMOL/L (24-32); eGFR 85 ML/MIN
[2019-12-23 21:42] LABS: POTASSIUM 2.8 MMOL/L (3.5-5.1)
[2019-12-23 21:43] LABS: UA COLLECTION TYPE CLN CATCH MIDSTREAM
[2019-12-23 22:02] LABS: SQUAMOUS EPITHELIAL CELL,UR MANY /LPF (FEW)
[2019-12-23] MEDS ORDERED: PRAZ5CAP PO (22:07)
[2019-12-23] MEDS ORDERED: METO-292 PO (22:22)
[2019-12-23] MEDS ORDERED: BUS15T PO (22:22)
[2019-12-23] MEDS ORDERED: SERT-153 PO (22:22)
[2019-12-23] MEDS ORDERED: THO10T PO (22:22)
[2019-12-23 22:28] LABS: CAL OXALATE CRYSTALS 2+ /HPF (NEGATIVE); RBC,URINE 0-2 /HPF (0-2); WBC,URINE 0-4 /HPF (0-4)
[2019-12-23 22:29] LABS: BACTERIA,URINE 2+ /HPF (Neg)
[2019-12-23] MEDS ORDERED: ketorolac trometh. 30mg/ml inj. IV ONE (22:50)
[2019-12-23] MEDS ORDERED: normal saline 1000ml 1,000 ML IV ONE (22:50)
[2019-12-23] MEDS ORDERED: LORazepam 2 mg/ml vial IV ONE (22:50)
[2019-12-23] MEDS ORDERED: haloperidol lactate 5mg/ml inj IM ONE (22:50)
[2019-12-23] MEDS ORDERED: metoclopramide 5 mg/ml inj IV ONE (22:50)
[2019-12-23] MEDS ORDERED: diphenhydrAMINE 50 mg/ml inj IV ONE (22:50)
[2019-12-23] MEDS ORDERED: famotidine/PF 10 mg/ml inj IV ONE (22:50)
[2019-12-23] MEDS ORDERED: pantoprazole 40 MG vial IV ONE (22:50)
[2019-12-23] MEDS ORDERED: potassium Cl 10 mEq/100mL bag IV ONE (23:05)
[2019-12-23] MEDS ORDERED: potassium CL 10mEq/100ml bag 100 ML IV ONE (23:10)
[2019-12-24] MEDS ORDERED: fentaNYL/PF 50MCG/1 ML 2ML syringe IV ONE (01:05)
[2019-12-24] MEDS ORDERED: POTA20TA19 PO (01:06)
[2019-12-24 01:58] VITALS: BP 127/89
== END 2019-12-24 02:01 | disposition home or self-care (01) ==
LOC: ER 20:42
DX: R10.84 Generalized abdominal pain (principal); E87.6 Hypokalemia; R11.2 Nausea with vomiting, unspecified; R19.7 Diarrhea, unspecified; F31.9 Bipolar disorder, unspecified; F20.9 Schizophrenia, unspecified; F12.90 Cannabis use, unspecified, uncomplicated; F11.90 Opioid use, unspecified, uncomplicated; Z98.890 Other specified postprocedural states; Z88.8 Allergy status to other drugs, medicaments and biological substances; Z79.899 Other long term (current) drug therapy
CPT/HCPCS: 36415; 74176; 80053; 81001; 81025; 83690; 85025; 96361; 96372; 96374; 96375; 99285; C9113; J1200; J1630; J1885; J2060; J2765; J3010; J3480; J3490; J7030; 96365

== ENCOUNTER 2019-12-24 20:59 | Emergency (ER) | payer MEDICAID ==
[~2019-12-24] VITALS: Ht 165.1 cm; Wt 71.0 kg
[~2019-12-24 20:59] MED LIST changes: -ALPR1TAB2 PO; +BUS15T PO; -FLUT16SP2 BOTHNARES; -METH4TAB3 PO; +METO-292 PO; -ONDA4TAB6 PO; -ONDA8TAB13 PO; -PANT-47 PO; +POTA20TA19 PO; +PRAZ5CAP PO; -PROM25SU9 RC; +SERT-153 PO; +THO10T PO
[2019-12-24] MEDS ORDERED: LORazepam 2 mg/ml vial IM ONE (21:15)
[2019-12-24] MEDS ORDERED: haloperidol lactate 5mg/ml inj IM ONE (21:15)
[2019-12-24] MEDS ORDERED: fentaNYL/PF 50MCG/1 ML 2ML syringe IM ONE (22:20)
[2019-12-24 22:37] VITALS: BP 145/111
== END 2019-12-24 22:52 | disposition home or self-care (01) ==
LOC: ER 20:59
DX: R11.10 Vomiting, unspecified (principal); F12.90 Cannabis use, unspecified, uncomplicated; F31.9 Bipolar disorder, unspecified; F20.9 Schizophrenia, unspecified; F11.90 Opioid use, unspecified, uncomplicated; F17.210 Nicotine dependence, cigarettes, uncomplicated; Z98.890 Other specified postprocedural states; Z88.8 Allergy status to other drugs, medicaments and biological substances; Z79.899 Other long term (current) drug therapy
CPT/HCPCS: 96372; 99284; J1630; J2060; J3010

== ENCOUNTER 2019-12-26 00:48 | Emergency (ER) | payer MEDICAID ==
[~2019-12-26] VITALS: Ht 165.1 cm; Wt 77.3 kg
[2019-12-26 00:54] VITALS: BP 148/109
[2019-12-26] MEDS ORDERED: haloperidol lactate 5mg/ml inj IM ONE (01:05)
[2019-12-26] MEDS ORDERED: normal saline 1000ML IV soln IVB ONE (01:05)
[2019-12-26 01:16] LABS: BASOPHILS # (AUTO) 0.1 X10'3 (0-0.2); BASOPHILS % (AUTO) 0.3 % (0-1); EOSINOPHILS # (AUTO) 0.1 X10'3 (0-0.9); EOSINOPHILS % (AUTO) 0.5 % (0-6); HEMATOCRIT 44.5 % (35.0-45.0); HEMOGLOBIN 15.3 g/dl (12.0-16.0); LYMPHOCYTES # (AUTO) 2.9 X10'3 (1.1-4.8); LYMPHOCYTES % (AUTO) 12.5 % (21-51); MEAN CORPUSCULAR HEMOGLOBIN 30.2 PG (27.0-31.0); MEAN CORPUSCULAR HGB CONC 34.4 g/dL (33.0-36.5); MEAN CORPUSCULAR VOLUME 87.9 FL (78-98); MONOCYTES % (AUTO) 8.6 % (2-12); NEUTROPHILS # (AUTO) 17.9 X10'3 (1.8-7.7); NEUTROPHILS % (AUTO) 78.1 % (42-75); PLATELET COUNT 280 X10'3 (140-440); RED BLOOD COUNT 5.07 X10'6 (4.20-5.60); RED CELL DISTRIBUTION WIDTH 13.1 % (11.5-14.5); WHITE BLOOD COUNT 22.9 X10'3 (4.5-11.0)
[2019-12-26 01:30] LABS: ALANINE AMINOTRANSFERASE 28 U/L (12-78); ALBUMIN 4.4 G/DL (3.4-5.0); ALBUMIN/GLOBULIN RATIO 1.4 (1.1-1.5); ALKALINE PHOSPHATASE 74 IU/L (46-116); ANION GAP 13 (8-16); ASPARTATE AMINO TRANSFERASE 32 U/L (10-37); BILIRUBIN,TOTAL 0.5 MG/DL (0.1-1.0); BLOOD UREA NITROGEN 16 MG/DL (7-18); BUN/CREATININE RATIO 19.8 (6.6-38.0); CALCIUM 9.7 MG/DL (8.5-10.1); CHLORIDE 99 MMOL/L (99-107); CREATININE 0.81 MG/DL (0.40-0.90); GLUCOSE 135 MG/DL (70-104); SODIUM 134 MMOL/L (135-145); TOTAL CARBON DIOXIDE 22.4 MMOL/L (24-32); TOTAL PROTEIN 7.6 G/DL (6.4-8.2); eGFR 80 ML/MIN
[2019-12-26 01:34] LABS: POTASSIUM 2.9 MMOL/L (3.5-5.1)
[2019-12-26] MEDS: potassium Cl 20 mEq SR tablet PO ONE ×2 (01:35→02:25)
[2019-12-26] MEDS: potassium Cl 10 mEq/100mL bag IV SCH ×2 (02:09→02:50)
[2019-12-26] MEDS ORDERED: potassium Cl 20 mEq SR tablet PO ONE (02:10)
[2019-12-26] MEDS ORDERED: metoclopramide 5 mg/ml inj IV ONE (02:20)
[2019-12-26] MEDS ORDERED: acetaminophen 325mg tablet PO ONE (02:55)
== END 2019-12-26 03:20 | disposition home or self-care (01) ==
LOC: ER 00:49
DX: R11.2 Nausea with vomiting, unspecified (principal); E87.6 Hypokalemia; R10.84 Generalized abdominal pain; F31.9 Bipolar disorder, unspecified; F20.9 Schizophrenia, unspecified; F15.90 Other stimulant use, unspecified, uncomplicated; F11.90 Opioid use, unspecified, uncomplicated; Z98.890 Other specified postprocedural states; Z88.8 Allergy status to other drugs, medicaments and biological substances; Z79.899 Other long term (current) drug therapy
CPT/HCPCS: 36415; 80053; 85025; 96361; 96372; 96374; 99284; J1630; J2765; J3480; J7030

== ENCOUNTER → 2019-12-28 | Emergency (ER) | payer MEDICAID ==
[~2019-12-28] VITALS: Ht 165.1 cm; Wt 77.3 kg
[~2019-12-28] MED LIST changes: +LORazepam 2 mg/ml vial IV ONE; +diphenhydrAMINE 50 mg/ml inj IV ONE; +famotidine/PF 10 mg/ml inj IV ONE; +haloperidol lactate 5mg/ml inj IM ONE; +metoclopramide 5 mg/ml inj IV ONE; +normal saline 1000ML IV soln IVB ONE; +pantoprazole 40 MG vial IV ONE; +potassium Cl 20 mEq SR tablet PO STA; +proCHLORperazine 10 MG/2 ml inj IV ONE
[2019-12-28 03:04] LABS: URINE HCG NEGATIVE (NEG)
[2019-12-28 03:06] LABS: CLARITY,URINE CLOUDY (Clear); COLOR,URINE YELLOW (Yellow); GLUCOSE, URINE NEGATIVE (Neg); KETONES,URINE TRACE mg/dl (Neg); LEUKOCYTE ESTERASE ,URINE SMALL (Neg); NITRITES, URINE NEGATIVE (Neg); OCCULT BLOOD,URINE LARGE (Neg); PROTEIN,URINE NEGATIVE (Neg); UROBILINOGEN,URINE 0.2 E.U/dL (0.2-1.0)
[2019-12-28 03:07] LABS: UA COLLECTION TYPE CLN CATCH MIDSTREAM
[2019-12-28 03:11] LABS: ALANINE AMINOTRANSFERASE 28 U/L (12-78); ALBUMIN 4.3 G/DL (3.4-5.0); ALBUMIN/GLOBULIN RATIO 1.4 (1.1-1.5); ALKALINE PHOSPHATASE 70 IU/L (46-116); ANION GAP 12 (8-16); ASPARTATE AMINO TRANSFERASE 20 U/L (10-37); BILIRUBIN,TOTAL 0.3 MG/DL (0.1-1.0); BLOOD UREA NITROGEN 14 MG/DL (7-18); BUN/CREATININE RATIO 18.2 (6.6-38.0); CALCIUM 9.4 MG/DL (8.5-10.1); CHLORIDE 102 MMOL/L (99-107); CREATININE 0.77 MG/DL (0.40-0.90); GLUCOSE 146 MG/DL (70-104); LIPASE 133 U/L (73-393); MAGNESIUM 2.2 MG/DL (1.5-2.4); POTASSIUM 3.2 MMOL/L (3.5-5.1); SODIUM 137 MMOL/L (135-145); TOTAL PROTEIN 7.4 G/DL (6.4-8.2); eGFR 85 ML/MIN
[2019-12-28 03:13] LABS: BASOPHILS # (AUTO) 0.1 X10'3 (0-0.2); BASOPHILS % (AUTO) 0.6 % (0-1); EOSINOPHILS # (AUTO) 0.1 X10'3 (0-0.9); EOSINOPHILS % (AUTO) 0.8 % (0-6); HEMATOCRIT 42.1 % (35.0-45.0); HEMOGLOBIN 14.1 g/dl (12.0-16.0); LYMPHOCYTES # (AUTO) 1.8 X10'3 (1.1-4.8); LYMPHOCYTES % (AUTO) 11.8 % (21-51); MEAN CORPUSCULAR HEMOGLOBIN 29.5 PG (27.0-31.0); MEAN CORPUSCULAR HGB CONC 33.4 g/dL (33.0-36.5); MEAN CORPUSCULAR VOLUME 88.2 FL (78-98); MEAN PLATELET VOLUME 9.4 FL (7.4-10.4); MONOCYTES # (AUTO) 0.9 X10'3 (0-0.9); NEUTROPHILS # (AUTO) 12.5 X10'3 (1.8-7.7); NEUTROPHILS % (AUTO) 80.8 % (42-75); PLATELET COUNT 280 X10'3 (140-440); RED BLOOD COUNT 4.77 X10'6 (4.20-5.60); WHITE BLOOD COUNT 15.5 X10'3 (4.5-11.0)
[2019-12-28 03:23] LABS: AMORPHOUS PHOSPHATES 4+; RBC,URINE 0-2 /HPF (0-2); SQUAMOUS EPITHELIAL CELL,UR MANY /LPF (FEW)
[2019-12-28 03:24] LABS: BACTERIA,URINE 2+ /HPF (Neg)
--- NOTE | 2019-12-28 03:25 | NUR ---
URINE REJECTED FOR CULTURE
--- NOTE | 2019-12-28 03:35 | NUR ---
Mitzy from [facility] called to check status of pt.CT cleared C-Spine Tx for UTI was indicatedPt is up for D/C
[2019-12-28 04:23] VITALS: BP 132/75
== END | disposition home or self-care (01) ==
LOC: ER 02:05
DX: R11.15 Cyclical vomiting syndrome unrelated to migraine (principal); R11.2 Nausea with vomiting, unspecified; E87.6 Hypokalemia; F31.9 Bipolar disorder, unspecified; F20.9 Schizophrenia, unspecified; F12.90 Cannabis use, unspecified, uncomplicated; F11.90 Opioid use, unspecified, uncomplicated; Z98.890 Other specified postprocedural states; Z88.8 Allergy status to other drugs, medicaments and biological substances; Z79.899 Other long term (current) drug therapy
CPT/HCPCS: 36415; 80053; 81001; 81025; 83690; 83735; 85025; 96361; 96372; 96374; 96375; 99284; C9113; J0780; J1200; J1630; J2060; J2765; J3490; J7030

== ENCOUNTER 2020-02-11 22:11 | Emergency (ER) | payer MEDICAID ==
[~2020-02-11] VITALS: Ht 165.1 cm; Wt 77.3 kg
[~2020-02-11 22:11] MED LIST changes: -LORazepam 2 mg/ml vial IV ONE; -POTA20TA19 PO; -diphenhydrAMINE 50 mg/ml inj IV ONE; -famotidine/PF 10 mg/ml inj IV ONE; -haloperidol lactate 5mg/ml inj IM ONE; -metoclopramide 5 mg/ml inj IV ONE; -normal saline 1000ML IV soln IVB ONE; -pantoprazole 40 MG vial IV ONE; -potassium Cl 20 mEq SR tablet PO STA; -proCHLORperazine 10 MG/2 ml inj IV ONE
[2020-02-11] MEDS ORDERED: LORazepam 2 mg/ml vial IV ONE (22:15)
[2020-02-11] MEDS ORDERED: haloperidol lactate 5mg/ml inj IM ONE (22:15)
[2020-02-11] MEDS ORDERED: metoclopramide 5 mg/ml inj IV ONE (22:15)
[2020-02-11] MEDS ORDERED: ringers solution, lactated 1000ml IV soln IV ONE (22:15)
[2020-02-11] MEDS ORDERED: proCHLORperazine 10 MG/2 ml inj IV ONE (22:30)
[2020-02-11 22:36] LABS: BASOPHILS # (AUTO) 0.1 X10'3 (0-0.2); BASOPHILS % (AUTO) 0.4 % (0-1); EOSINOPHILS % (AUTO) 0.1 % (0-6); HEMATOCRIT 42.5 % (35.0-45.0); HEMOGLOBIN 14.6 g/dl (12.0-16.0); LYMPHOCYTES # (AUTO) 1.3 X10'3 (1.1-4.8); LYMPHOCYTES % (AUTO) 6.4 % (21-51); MEAN CORPUSCULAR HEMOGLOBIN 30.5 PG (27.0-31.0); MEAN CORPUSCULAR HGB CONC 34.3 g/dL (33.0-36.5); MEAN CORPUSCULAR VOLUME 89.1 FL (78-98); MEAN PLATELET VOLUME 8.7 FL (7.4-10.4); MONOCYTES # (AUTO) 1.4 X10'3 (0-0.9); MONOCYTES % (AUTO) 6.6 % (2-12); NEUTROPHILS # (AUTO) 17.9 X10'3 (1.8-7.7); NEUTROPHILS % (AUTO) 86.5 % (42-75); PLATELET COUNT 309 X10'3 (140-440); RED BLOOD COUNT 4.77 X10'6 (4.20-5.60); WHITE BLOOD COUNT 20.6 X10'3 (4.5-11.0)
--- NOTE | 2020-02-11 22:55 | NUR ---
attemped to urinate, unable to produce urine.
[2020-02-11 22:56] LABS: ALANINE AMINOTRANSFERASE 28 U/L (12-78); ALBUMIN 4.7 G/DL (3.4-5.0); ALBUMIN/GLOBULIN RATIO 1.2 (1.1-1.5); ALKALINE PHOSPHATASE 96 IU/L (46-116); ANION GAP 18 (8-16); ASPARTATE AMINO TRANSFERASE 22 U/L (10-37); BILIRUBIN,TOTAL 0.5 MG/DL (0.1-1.0); BLOOD UREA NITROGEN 17 MG/DL (7-18); BUN/CREATININE RATIO 16.3 (6.6-38.0); CALCIUM 9.8 MG/DL (8.5-10.1); CHLORIDE 99 MMOL/L (99-107); CREATININE 1.04 MG/DL (0.40-0.90); GLUCOSE 176 MG/DL (70-104); POTASSIUM 3.2 MMOL/L (3.5-5.1); SODIUM 134 MMOL/L (135-145); TOTAL CARBON DIOXIDE 17.4 MMOL/L (24-32); TOTAL PROTEIN 8.5 G/DL (6.4-8.2); eGFR 60 ML/MIN
[2020-02-11] MEDS ORDERED: PROC25SU31 RC (23:34)
[2020-02-11] MEDS ORDERED: ONDA4TAB6 PO (23:34)
[2020-02-11] MEDS ORDERED: potassium Cl 20 mEq SR tablet PO STA (23:34)
--- NOTE | 2020-02-12 00:01 | NUR ---
PT'S BF ON HIS WAY TO PICK HER UP FROM [facility]. WILL BE HERE IN 15 MINUTES.
[2020-02-12 00:14] VITALS: BP 106/62
[2020-02-13] MEDS ORDERED: OMEP20CA15 PO (15:08)
== END 2020-02-12 00:15 | disposition home or self-care (01) ==
LOC: ER 22:12
DX: R11.15 Cyclical vomiting syndrome unrelated to migraine (principal); E87.6 Hypokalemia; R10.84 Generalized abdominal pain; F31.9 Bipolar disorder, unspecified; F20.9 Schizophrenia, unspecified; F12.90 Cannabis use, unspecified, uncomplicated; F11.90 Opioid use, unspecified, uncomplicated; Z98.890 Other specified postprocedural states; Z88.8 Allergy status to other drugs, medicaments and biological substances; Z79.899 Other long term (current) drug therapy
CPT/HCPCS: 36415; 80053; 85025; 96361; 96372; 96374; 96375; 99284; J0780; J1630; J2060; J7120

== ENCOUNTER 2020-02-12 23:17 | Emergency (ER) | payer MEDICAID ==
[~2020-02-12] VITALS: Ht 165.1 cm; Wt 81.8 kg
[~2020-02-12 23:17] MED LIST changes: +ONDA4TAB6 PO; +PROC25SU31 RC
[2020-02-12 23:20] VITALS: BP 157/111
[2020-02-12] MEDS ORDERED: diphenhydrAMINE 50 mg/ml inj IM ONE (23:25)
[2020-02-12] MEDS ORDERED: LORazepam 2 mg/ml vial IM ONE (23:25)
[2020-02-12] MEDS ORDERED: haloperidol lactate 5mg/ml inj IM ONE (23:25)
[2020-02-12] MEDS ORDERED: haloperidol lactate 5mg/ml inj ONE (23:29)
[2020-02-13] MEDS ORDERED: OMEP20CA15 PO (15:08)
== END 2020-02-12 23:58 | disposition home or self-care (01) ==
LOC: ER 23:18
DX: R11.15 Cyclical vomiting syndrome unrelated to migraine (principal); R11.2 Nausea with vomiting, unspecified; R10.84 Generalized abdominal pain; F31.9 Bipolar disorder, unspecified; F20.9 Schizophrenia, unspecified; F11.90 Opioid use, unspecified, uncomplicated; Z98.890 Other specified postprocedural states; Z88.8 Allergy status to other drugs, medicaments and biological substances; Z79.899 Other long term (current) drug therapy
CPT/HCPCS: 96372; 99284; J1200; J1630; J2060

== ENCOUNTER 2020-02-13 12:57 | Emergency (ER) | payer MEDICAID ==
[~2020-02-13] VITALS: Ht 165.1 cm; Wt 81.8 kg
[2020-02-13] MEDS ORDERED: OMEP20CA15 PO (15:08)
[2020-02-13] MEDS ORDERED: ondansetron 4mg rapidly disintigrating tab PO ONE (15:10)
[2020-02-13 15:20] VITALS: BP 126/91
== END 2020-02-13 15:23 | disposition home or self-care (01) ==
LOC: ER 12:58
DX: K29.00 Acute gastritis without bleeding (principal); F31.9 Bipolar disorder, unspecified; F20.9 Schizophrenia, unspecified; F14.10 Cocaine abuse, uncomplicated; Z79.899 Other long term (current) drug therapy
CPT/HCPCS: 93005; 99283

== ENCOUNTER 2020-02-17 13:49 | Emergency (ER) | payer MEDICAID ==
[~2020-02-17] VITALS: Ht 165.1 cm; Wt 79.5 kg
[~2020-02-17 13:49] MED LIST changes: +OMEP20CA15 PO
[2020-02-17] MEDS ORDERED: haloperidol lactate 5mg/ml inj IM ONE (14:05)
[2020-02-17] MEDS ORDERED: normal saline 1000ML IV soln IV ONE (14:05)
[2020-02-17] MEDS ORDERED: LORazepam 2 mg/ml vial IV ONE (14:05)
[2020-02-17] MEDS ORDERED: potassium Cl 20 mEq SR tablet PO STA (14:09)
[2020-02-17] MEDS ORDERED: potassium Cl 10 mEq/100mL bag IV ONE (14:10)
[2020-02-17] MEDS ORDERED: magnesium 2GM in 50ml NS 50 ML IV ONE (14:10)
[2020-02-17 14:41] LABS: URINE HCG NEGATIVE (NEG)
--- NOTE | 2020-02-17 16:59 | NUR ---
CALL TO SIGNIFICANT OTHER ART[facility], STATES HE WILL BE HERE "IN A LITTLE BIT".
[2020-02-17 17:14] VITALS: BP 138/93
== END 2020-02-17 17:16 | disposition home or self-care (01) ==
LOC: ER 13:50
DX: R11.15 Cyclical vomiting syndrome unrelated to migraine (principal); R10.84 Generalized abdominal pain; R11.2 Nausea with vomiting, unspecified; F31.9 Bipolar disorder, unspecified; F20.9 Schizophrenia, unspecified; F11.90 Opioid use, unspecified, uncomplicated; Z98.890 Other specified postprocedural states; Z88.8 Allergy status to other drugs, medicaments and biological substances; Z79.899 Other long term (current) drug therapy
CPT/HCPCS: 81025; 96365; 96366; 96372; 96375; 99284; J1630; J2060; J3475; J3480; J7030

== ENCOUNTER 2020-02-19 03:40 | Emergency (ER) | payer MEDICAID ==
[~2020-02-19] VITALS: Ht 165.1 cm; Wt 79.3 kg
[2020-02-19 03:58] LABS: CLARITY,URINE CLOUDY (Clear); COLOR,URINE YELLOW (Yellow); GLUCOSE, URINE NEGATIVE (Neg); KETONES,URINE NEGATIVE (Neg); LEUKOCYTE ESTERASE ,URINE NEGATIVE (Neg); NITRITES, URINE NEGATIVE (Neg); OCCULT BLOOD,URINE LARGE (Neg); PROTEIN,URINE NEGATIVE (Neg); UROBILINOGEN,URINE 0.2 E.U/dL (0.2-1.0)
[2020-02-19 03:59] LABS: URINE HCG NEGATIVE (NEG)
[2020-02-19 04:07] LABS: UA COLLECTION TYPE CLN CATCH MIDSTREAM
[2020-02-19 04:09] LABS: AMORPHOUS PHOSPHATES 2+
[2020-02-19 04:10] LABS: RBC,URINE 0-2 /HPF (0-2); WBC,URINE 0-4 /HPF (0-4)
[2020-02-19 04:11] LABS: BACTERIA,URINE FEW /HPF (Neg); SQUAMOUS EPITHELIAL CELL,UR MODERATE /LPF (FEW)
[2020-02-19 04:36] LABS: BASOPHILS # (AUTO) 0.1 X10'3 (0-0.2); BASOPHILS % (AUTO) 0.7 % (0-1); EOSINOPHILS # (AUTO) 0.5 X10'3 (0-0.9); EOSINOPHILS % (AUTO) 3.5 % (0-6); HEMATOCRIT 40.6 % (35.0-45.0); HEMOGLOBIN 13.5 g/dl (12.0-16.0); LYMPHOCYTES # (AUTO) 2.7 X10'3 (1.1-4.8); LYMPHOCYTES % (AUTO) 20.2 % (21-51); MEAN CORPUSCULAR HEMOGLOBIN 29.8 PG (27.0-31.0); MEAN CORPUSCULAR HGB CONC 33.2 g/dL (33.0-36.5); MEAN CORPUSCULAR VOLUME 89.6 FL (78-98); MEAN PLATELET VOLUME 8.8 FL (7.4-10.4); MONOCYTES # (AUTO) 1.4 X10'3 (0-0.9); MONOCYTES % (AUTO) 10.4 % (2-12); NEUTROPHILS # (AUTO) 8.7 X10'3 (1.8-7.7); NEUTROPHILS % (AUTO) 65.2 % (42-75); PLATELET COUNT 235 X10'3 (140-440); RED BLOOD COUNT 4.53 X10'6 (4.20-5.60); RED CELL DISTRIBUTION WIDTH 14.4 % (11.5-14.5); WHITE BLOOD COUNT 13.3 X10'3 (4.5-11.0)
[2020-02-19 04:49] LABS: ALANINE AMINOTRANSFERASE 26 U/L (12-78); ALBUMIN 3.6 G/DL (3.4-5.0); ALBUMIN/GLOBULIN RATIO 1.1 (1.1-1.5); ALKALINE PHOSPHATASE 75 IU/L (46-116); ANION GAP 11 (8-16); ASPARTATE AMINO TRANSFERASE 12 U/L (10-37); BILIRUBIN,TOTAL 0.1 MG/DL (0.1-1.0); BLOOD UREA NITROGEN 11 MG/DL (7-18); BUN/CREATININE RATIO 13.9 (6.6-38.0); CALCIUM 8.4 MG/DL (8.5-10.1); CHLORIDE 107 MMOL/L (99-107); CREATININE 0.79 MG/DL (0.40-0.90); GLUCOSE 95 MG/DL (70-104); LIPASE 162 U/L (73-393); POTASSIUM 3.8 MMOL/L (3.5-5.1); SODIUM 142 MMOL/L (135-145); TOTAL PROTEIN 6.9 G/DL (6.4-8.2); eGFR 83 ML/MIN
[2020-02-19] MEDS ORDERED: normal saline 1000ML IV soln IVB ONE (05:15)
[2020-02-19] MEDS ORDERED: haloperidol lactate 5mg/ml inj IM ONE (05:15)
[2020-02-19] MEDS ORDERED: ondansetron/PF 4mg/2ml inj IV ONE (05:15)
[2020-02-19 05:32] VITALS: BP 133/96
--- NOTE | 2020-02-19 06:03 | NUR ---
PATIENT IN BED EYES CLOSED RR EVEN UN LABORED THE N,V IS ABSENT AT THIS TIME
[2020-02-19] MEDS ORDERED: LORazepam 2 mg/ml vial IV ONE (06:10)
[2020-02-19] MEDS ORDERED: famotidine/PF 10 mg/ml inj IV ONE (06:10)
== END 2020-02-19 07:00 | disposition home or self-care (01) ==
LOC: ER 03:41
DX: R11.15 Cyclical vomiting syndrome unrelated to migraine (principal); R11.2 Nausea with vomiting, unspecified; R10.13 Epigastric pain; F31.9 Bipolar disorder, unspecified; F20.9 Schizophrenia, unspecified; F12.90 Cannabis use, unspecified, uncomplicated; F11.90 Opioid use, unspecified, uncomplicated; Z98.890 Other specified postprocedural states; Z88.8 Allergy status to other drugs, medicaments and biological substances; Z79.899 Other long term (current) drug therapy
CPT/HCPCS: 36415; 80053; 81001; 81025; 83690; 85025; 96361; 96372; 96374; 96375; 99284; J1630; J2060; J2405; J3490; J7030

== ENCOUNTER 2020-03-13 09:05 | Emergency (ER) | payer MEDICAID ==
[~2020-03-13] VITALS: Ht 165.1 cm; Wt 79.0 kg
[2020-03-13] MEDS ORDERED: ondansetron/PF 4mg/2ml inj IV ONE (10:05)
[2020-03-13 10:24] LABS: BASOPHILS # (AUTO) 0.1 X10'3 (0-0.2); BASOPHILS % (AUTO) 0.5 % (0-1); EOSINOPHILS % (AUTO) 0.3 % (0-6); HEMATOCRIT 42.3 % (35.0-45.0); HEMOGLOBIN 13.9 g/dl (12.0-16.0); LYMPHOCYTES # (AUTO) 1.3 X10'3 (1.1-4.8); LYMPHOCYTES % (AUTO) 8.4 % (21-51); MEAN CORPUSCULAR HEMOGLOBIN 29.7 PG (27.0-31.0); MEAN CORPUSCULAR HGB CONC 32.9 g/dL (33.0-36.5); MEAN CORPUSCULAR VOLUME 90.3 FL (78-98); MEAN PLATELET VOLUME 9.8 FL (7.4-10.4); MONOCYTES # (AUTO) 0.8 X10'3 (0-0.9); MONOCYTES % (AUTO) 5.1 % (2-12); NEUTROPHILS # (AUTO) 13.2 X10'3 (1.8-7.7); NEUTROPHILS % (AUTO) 85.7 % (42-75); PLATELET COUNT 232 X10'3 (140-440); RED BLOOD COUNT 4.68 X10'6 (4.20-5.60); RED CELL DISTRIBUTION WIDTH 14.4 % (11.5-14.5); WHITE BLOOD COUNT 15.4 X10'3 (4.5-11.0)
[2020-03-13] MEDS ORDERED: famotidine/PF 10 mg/ml inj IV ONE (10:40)
[2020-03-13] MEDS ORDERED: LORazepam 2 mg/ml vial IV ONE (10:40)
[2020-03-13] MEDS ORDERED: normal saline 1000ML IV soln IVB ONE (10:40)
[2020-03-13 10:42] LABS: ALANINE AMINOTRANSFERASE 22 U/L (12-78); ALBUMIN 4.3 G/DL (3.4-5.0); ALBUMIN/GLOBULIN RATIO 1.2 (1.1-1.5); ALKALINE PHOSPHATASE 75 IU/L (46-116); ANION GAP 14 (8-16); ASPARTATE AMINO TRANSFERASE 16 U/L (10-37); BILIRUBIN,TOTAL 0.3 MG/DL (0.1-1.0); BLOOD UREA NITROGEN 12 MG/DL (7-18); CALCIUM 8.9 MG/DL (8.5-10.1); CHLORIDE 105 MMOL/L (99-107); GLUCOSE 159 MG/DL (70-104); POTASSIUM 3.4 MMOL/L (3.5-5.1); SODIUM 140 MMOL/L (135-145); TOTAL CARBON DIOXIDE 21.2 MMOL/L (24-32); TOTAL PROTEIN 7.8 G/DL (6.4-8.2); eGFR > 90 ML/MIN
[2020-03-13 10:43] LABS: LIPASE 76 U/L (73-393)
[2020-03-13 11:16] VITALS: BP 144/89
[2020-03-13] MEDS ORDERED: haloperidol lactate 5mg/ml inj IM ONE (11:20)
== END 2020-03-13 12:09 | disposition home or self-care (01) ==
LOC: ER 09:06
DX: R10.84 Generalized abdominal pain (principal); F12.188 Cannabis abuse with other cannabis-induced disorder; R11.10 Vomiting, unspecified; F31.9 Bipolar disorder, unspecified; F20.9 Schizophrenia, unspecified; F11.90 Opioid use, unspecified, uncomplicated; Z98.890 Other specified postprocedural states; Z88.8 Allergy status to other drugs, medicaments and biological substances; Z79.899 Other long term (current) drug therapy
CPT/HCPCS: 36415; 80053; 83690; 85025; 96361; 96372; 96374; 96375; 99284; J1630; J2060; J2405; J3490; J7030

== ENCOUNTER 2020-04-02 17:42 | Emergency (ER) | payer MEDICAID ==
[~2020-04-02] VITALS: Ht 152.4 cm; Wt 81.8 kg
[~2020-04-02 17:42] MED LIST changes: -PROC25SU31 RC
[2020-04-02 18:16] VITALS: BP 137/91
[2020-04-02] MEDS ORDERED: haloperidol lactate 5mg/ml inj IM ONE (19:10)
[2020-04-02] MEDS ORDERED: LORazepam 2 mg/ml vial IV ONE (19:10)
[2020-04-02] MEDS ORDERED: normal saline 1000ML IV soln IV ONE (19:10)
[2020-04-02] MEDS ORDERED: ondansetron/PF 4mg/2ml inj IV ONE (19:10)
== END 2020-04-02 19:43 | disposition home or self-care (01) ==
LOC: ER 17:42
DX: R11.15 Cyclical vomiting syndrome unrelated to migraine (principal); R11.2 Nausea with vomiting, unspecified; R10.13 Epigastric pain; F31.9 Bipolar disorder, unspecified; F20.9 Schizophrenia, unspecified; F12.90 Cannabis use, unspecified, uncomplicated; F11.90 Opioid use, unspecified, uncomplicated; Z98.890 Other specified postprocedural states; Z88.8 Allergy status to other drugs, medicaments and biological substances; Z79.899 Other long term (current) drug therapy
CPT/HCPCS: 96372; 96374; 99284; J1630; J2060

== ENCOUNTER 2020-04-25 14:17 | Emergency (ER) | payer MEDICAID ==
[~2020-04-25] VITALS: Ht 165.1 cm; Wt 73.2 kg
[2020-04-25] MEDS ORDERED: diphenhydrAMINE 50 mg/ml inj IV ONE (14:30)
[2020-04-25] MEDS ORDERED: normal saline 1000ML IV soln IVB ONE (14:30)
[2020-04-25] MEDS ORDERED: haloperidol lactate 5mg/ml inj IM ONE (14:30)
--- NOTE | 2020-04-25 15:15 | NUR ---
Reported to HERSON Bran and Dr. Mckeon that pt requesting to "just take my IV out". Pt states "I have hyperemesis and meds arent working" and included she had already received Haldol. to print DC paperwork.
[2020-04-25] MEDS ORDERED: LORazepam 2 mg/ml vial IV ONE (15:20)
[2020-04-25] MEDS ORDERED: metoclopramide 5 mg/ml inj IV ONE (15:20)
[2020-04-25 15:39] VITALS: BP 161/112
== END 2020-04-25 15:32 | disposition home or self-care (01) ==
LOC: ER 14:17
DX: R11.2 Nausea with vomiting, unspecified (principal); R10.9 Unspecified abdominal pain; R06.4 Hyperventilation; F12.90 Cannabis use, unspecified, uncomplicated; F11.90 Opioid use, unspecified, uncomplicated; Z88.8 Allergy status to other drugs, medicaments and biological substances; Z79.899 Other long term (current) drug therapy
CPT/HCPCS: 96361; 96372; 96374; 99284; J1200; J1630; J7030

== ENCOUNTER 2020-05-21 11:02 | Emergency (ER) | payer MEDICAID ==
[~2020-05-21] VITALS: Ht 165.1 cm; Wt 70.5 kg
[2020-05-21] MEDS ORDERED: ondansetron/PF 4mg/2ml inj IV ONE (11:20)
[2020-05-21] MEDS ORDERED: diphenhydrAMINE 50 mg/ml inj IV ONE (11:20)
[2020-05-21] MEDS ORDERED: normal saline 1000ml 1,000 ML IV ONE (11:20)
[2020-05-21] MEDS ORDERED: pantoprazole 40MG/NS 100ML BAG 100 ML IV ONE (11:20)
[2020-05-21] MEDS ORDERED: haloperidol lactate 5mg/ml inj IM ONE (11:20)
[2020-05-21 11:56] LABS: BASOPHILS # (AUTO) 0.1 X10'3 (0-0.2); BASOPHILS % (AUTO) 0.7 % (0-1); EOSINOPHILS % (AUTO) 0 % (0-6); HEMATOCRIT 41.7 % (35.0-45.0); HEMOGLOBIN 13.9 g/dl (12.0-16.0); LYMPHOCYTES # (AUTO) 0.8 X10'3 (1.1-4.8); LYMPHOCYTES % (AUTO) 7.9 % (21-51); MEAN CORPUSCULAR HEMOGLOBIN 29.6 PG (27.0-31.0); MEAN CORPUSCULAR HGB CONC 33.4 g/dL (33.0-36.5); MEAN CORPUSCULAR VOLUME 88.6 FL (78-98); MEAN PLATELET VOLUME 9.2 FL (7.4-10.4); MONOCYTES # (AUTO) 0.4 X10'3 (0-0.9); MONOCYTES % (AUTO) 4.2 % (2-12); NEUTROPHILS # (AUTO) 9.3 X10'3 (1.8-7.7); NEUTROPHILS % (AUTO) 87.2 % (42-75); PLATELET COUNT 252 X10'3 (140-440); WHITE BLOOD COUNT 10.7 X10'3 (4.5-11.0)
[2020-05-21 12:07] LABS: ALANINE AMINOTRANSFERASE 21 U/L (12-78); ALBUMIN 4.3 G/DL (3.4-5.0); ALBUMIN/GLOBULIN RATIO 1.1 (1.1-1.5); ALKALINE PHOSPHATASE 71 IU/L (46-116); ANION GAP 13 (8-16); ASPARTATE AMINO TRANSFERASE 16 U/L (10-37); BILIRUBIN,TOTAL 0.3 MG/DL (0.1-1.0); BLOOD UREA NITROGEN 15 MG/DL (7-18); BUN/CREATININE RATIO 22.4 (6.6-38.0); CALCIUM 9.4 MG/DL (8.5-10.1); CHLORIDE 100 MMOL/L (99-107); CREATININE 0.67 MG/DL (0.40-0.90); GLUCOSE 140 MG/DL (70-104); LIPASE 59 U/L (73-393); POTASSIUM 3.3 MMOL/L (3.5-5.1); SODIUM 136 MMOL/L (135-145); TOTAL CARBON DIOXIDE 22.7 MMOL/L (24-32); TOTAL PROTEIN 8.1 G/DL (6.4-8.2); eGFR > 90 ML/MIN
[2020-05-21 12:22] LABS: CLARITY,URINE CLEAR (Clear); COLOR,URINE YELLOW (Yellow); GLUCOSE, URINE NEGATIVE (Neg); KETONES,URINE 40 mg/dl (Neg); LEUKOCYTE ESTERASE ,URINE NEGATIVE (Neg); NITRITES, URINE NEGATIVE (Neg); OCCULT BLOOD,URINE NEGATIVE (Neg); PH,URINE >=9.0 (4.8-8.0); PROTEIN,URINE 30 mg/dl (Neg); UROBILINOGEN,URINE 0.2 E.U/dL (0.2-1.0)
[2020-05-21 12:23] LABS: URINE HCG NEGATIVE (NEG)
[2020-05-21 12:27] LABS: UA COLLECTION TYPE CLN CATCH MIDSTREAM
[2020-05-21 12:28] LABS: BACTERIA,URINE FEW /HPF (Neg); MUCUS STRANDS FEW /LPF (Neg); RBC,URINE NONE SEEN /HPF (0-2); SQUAMOUS EPITHELIAL CELL,UR MANY /LPF (FEW); WBC,URINE 0-4 /HPF (0-4)
[2020-05-21 12:55] VITALS: BP 144/103
[2020-05-21] MEDS ORDERED: mag hydrox/Alum hydrox/simeth 30ml oral suspension PO ONE (13:00)
[2020-05-21] MEDS ORDERED: LIDOcaine Viscous 15ml cup MM PRN (13:00)
[2020-05-21] MEDS ORDERED: ONDA4TAB6 PO (13:05)
== END 2020-05-21 13:30 | disposition home or self-care (01) ==
LOC: ER 11:03
DX: R11.15 Cyclical vomiting syndrome unrelated to migraine (principal); R11.2 Nausea with vomiting, unspecified; R10.13 Epigastric pain; F31.9 Bipolar disorder, unspecified; F20.9 Schizophrenia, unspecified; F12.90 Cannabis use, unspecified, uncomplicated; F11.90 Opioid use, unspecified, uncomplicated; Z98.890 Other specified postprocedural states; Z88.8 Allergy status to other drugs, medicaments and biological substances; Z79.899 Other long term (current) drug therapy
CPT/HCPCS: 36415; 80053; 81001; 81025; 83690; 85025; 96365; 96372; 96375; 99284; C9113; J1200; J1630; J2405; J7030; 96361

== ENCOUNTER 2020-06-09 12:46 | Emergency (ER) | payer MEDICAID ==
[~2020-06-09] VITALS: Ht 167.6 cm; Wt 70.4 kg
[2020-06-09 12:48] VITALS: BP 143/90
[2020-06-09] MEDS ORDERED: ondansetron 4mg rapidly disintigrating tab PO ONE (13:20)
[2020-06-09 13:39] LABS: BASOPHILS % (AUTO) 0.2 % (0-1); EOSINOPHILS % (AUTO) 0 % (0-6); HEMATOCRIT 42.7 % (35.0-45.0); LYMPHOCYTES # (AUTO) 0.7 X10'3 (1.1-4.8); LYMPHOCYTES % (AUTO) 5.3 % (21-51); MEAN CORPUSCULAR HEMOGLOBIN 29.5 PG (27.0-31.0); MEAN CORPUSCULAR HGB CONC 32.7 g/dL (33.0-36.5); MONOCYTES # (AUTO) 0.5 X10'3 (0-0.9); MONOCYTES % (AUTO) 4.1 % (2-12); NEUTROPHILS # (AUTO) 11.4 X10'3 (1.8-7.7); NEUTROPHILS % (AUTO) 90.4 % (42-75); PLATELET COUNT 273 X10'3 (140-440); RED BLOOD COUNT 4.75 X10'6 (4.20-5.60); RED CELL DISTRIBUTION WIDTH 13.8 % (11.5-14.5); WHITE BLOOD COUNT 12.6 X10'3 (4.5-11.0)
[2020-06-09 13:56] LABS: ALANINE AMINOTRANSFERASE 22 U/L (12-78); ALBUMIN 4.3 G/DL (3.4-5.0); ALBUMIN/GLOBULIN RATIO 1.1 (1.1-1.5); ALKALINE PHOSPHATASE 76 IU/L (46-116); ANION GAP 9 (8-16); ASPARTATE AMINO TRANSFERASE 20 U/L (10-37); BILIRUBIN,TOTAL 0.6 MG/DL (0.1-1.0); BLOOD UREA NITROGEN 14 MG/DL (7-18); BUN/CREATININE RATIO 20.9 (6.6-38.0); CALCIUM 9.8 MG/DL (8.5-10.1); CHLORIDE 96 MMOL/L (99-107); CREATININE 0.67 MG/DL (0.40-0.90); GLUCOSE 105 MG/DL (70-104); POTASSIUM 3.4 MMOL/L (3.5-5.1); SODIUM 128 MMOL/L (135-145); TOTAL CARBON DIOXIDE 23.4 MMOL/L (24-32); TOTAL PROTEIN 8.2 G/DL (6.4-8.2); eGFR > 90 ML/MIN
--- NOTE | 2020-06-09 14:02 | NUR ---
ATTEMPT TO COLLECT UA, PATIENT STATES UNABLE TO GO AT THIS TIME, SHE USED THE RESTROOM IN THE LOBBY BEFORE COMING BACK TO A ROOM.
--- NOTE | 2020-06-09 14:16 | NUR ---
pt states, i have to much thc build up and my stomach hurts. pain 01/02
[2020-06-09] MEDS ORDERED: LORazepam 2 mg/ml vial IV ONE (14:30)
[2020-06-09] MEDS ORDERED: normal saline 1000ML IV soln IVB ONE (14:30)
[2020-06-09] MEDS ORDERED: pantoprazole 40MG/NS 100ML BAG 100 ML IV ONE (14:30)
[2020-06-09] MEDS ORDERED: diphenhydrAMINE 50 mg/ml inj IV ONE (14:30)
[2020-06-09] MEDS ORDERED: haloperidol lactate 5mg/ml inj IM ONE (14:30)
[2020-06-09 14:48] LABS: CLARITY,URINE CLOUDY (Clear); COLOR,URINE YELLOW (Yellow); GLUCOSE, URINE NEGATIVE (Neg); KETONES,URINE >=80 mg/dl (Neg); LEUKOCYTE ESTERASE ,URINE NEGATIVE (Neg); NITRITES, URINE NEGATIVE (Neg); OCCULT BLOOD,URINE LARGE (Neg); PH,URINE 6.5 (4.8-8.0); PROTEIN,URINE 30 mg/dl (Neg)
[2020-06-09] MEDS ORDERED: pantoprazole 40 MG vial IV ONE (14:55)
[2020-06-09 14:56] LABS: UA COLLECTION TYPE CLN CATCH MIDSTREAM
[2020-06-09 15:05] LABS: MUCUS STRANDS MANY /LPF (Neg); SQUAMOUS EPITHELIAL CELL,UR MANY /LPF (FEW); URINE HCG NEGATIVE (NEG)
[2020-06-09 15:09] LABS: BACTERIA,URINE FEW /HPF (Neg); COARSE GRANULAR CAST 0-3 /LPF (NEGATIVE)
[2020-06-09 15:11] LABS: RBC,URINE 0-2 /HPF (0-2); WBC,URINE 0-4 /HPF (0-4)
== END 2020-06-09 16:53 | disposition home or self-care (01) ==
LOC: ER 12:46
DX: R11.15 Cyclical vomiting syndrome unrelated to migraine (principal); R10.84 Generalized abdominal pain; F31.9 Bipolar disorder, unspecified; F20.9 Schizophrenia, unspecified; F17.200 Nicotine dependence, unspecified, uncomplicated; F12.90 Cannabis use, unspecified, uncomplicated; F11.90 Opioid use, unspecified, uncomplicated; Z88.8 Allergy status to other drugs, medicaments and biological substances; Z79.899 Other long term (current) drug therapy
CPT/HCPCS: 36415; 80053; 81001; 81025; 85025; 96372; 96374; 96375; 99284; C9113; J1200; J1630; J2060; J7030; 96361